=== PATIENT | male | born 1950 | race Caucasian/White ===

== ENCOUNTER 2017-10-22 08:11 | Inpatient (IN) | payer MEDICARE, OTHER ==
[~2017-10-22] VITALS: Ht 170.2 cm; Wt 75.6 kg
[~2017-10-22 08:11] MED LIST: ASPI-496 PO; ATOR10TA PO; BUPIVACAINE/PF 0.5% ONE; CHOL500050 PO; FLUO20TA25 PO; LEVO75TA5 PO; TRAZ50TA18 PO; VALS1TAB26 PO
[2017-10-22] MEDS ORDERED: LACTATED RINGERS 1,000 ML IV SCH ×2 (08:32→11:43)
[2017-10-22 08:46] VITALS: BP 126/82
[2017-10-22] MEDS ORDERED: FENTANYL PF 250 MCG/5ML ONE (11:06)
[2017-10-22] MEDS ORDERED: MIDAZOLAM 1 MG/ML, 2ML ONE (11:10)
[2017-10-22] MEDS ORDERED: CEFAZOLIN 1,000 MG ONE ×2 (11:13)
[2017-10-22] MEDS ORDERED: ROCURONIUM 10 MG/ML,10ML ONE (11:13)
[2017-10-22] MEDS ORDERED: PROPOFOL 10 MG/ML, 20ML ONE (11:13)
[2017-10-22] MEDS ORDERED: LIDOCAINE-MPF 2% ,5ML ONE (11:13)
[2017-10-22] MEDS ORDERED: EPINEPHRINE 1 MG/ML, 1ML INFIL ONE (11:15)
[2017-10-22] MEDS ORDERED: NEOSTIGMINE 1 MG/ML, 10ML ONE (11:31)
[2017-10-22] MEDS ORDERED: GLYCOPYRROLATE 0.2MG/1ML, 5ML ONE (11:31)
[2017-10-22] MEDS ORDERED: HYDROcodone/APAP 7.5-325MG/15ML UDC PO PRN (12:00)
[2017-10-22] MEDS ORDERED: LORazepam 2 MG/ML, 1ML IVPush PRN (12:00)
[2017-10-22] MEDS ORDERED: morphine SULFATE 10 MG/ML, 1ML IV PRN (12:00)
[2017-10-22] MEDS ORDERED: MEPERIDINE/PF 25MG/0.5ML IVPush PRN (12:00)
[2017-10-22] MEDS ORDERED: ENALAPRILAT 1.25 MG/ML, 2ML IVPush PRN (12:00)
[2017-10-22] MEDS ORDERED: DIPHENHYDRAMINE 50 MG/ML, 1ML IVPush PRN (12:00)
[2017-10-22] MEDS ORDERED: LORazepam 1MG TABLET PO PRN (12:00)
[2017-10-22] MEDS ORDERED: ONDANSETRON 2MG/ML, 2ML IVPush PRN ×2 (12:00)
[2017-10-22] MEDS ORDERED: hydrALAzine 20 MG/ML, 1ML IVPush PRN (12:00)
[2017-10-22] MEDS ORDERED: ACETAMINOPHEN 325 MG TABLET PO PRN ×2 (12:00)
[2017-10-22] MEDS ORDERED: ACETAMINOPHEN 650 MG SUPP PR PRN (12:00)
[2017-10-22] MEDS ORDERED: morphine SULFATE 10 MG/ML, 1ML IVPush PRN (12:00)
[2017-10-22] MEDS ORDERED: DIPHENHYDRAMINE 25 MG CAPSULE PO PRN (12:00)
[2017-10-22] MEDS ORDERED: OXYcodone 5 MG/5 ML ORAL.SOL UDC PO PRN (12:00)
[2017-10-22] MEDS ORDERED: morphine SULFATE 10 MG/ML, 1ML ONE (12:03)
[2017-10-22] MEDS ORDERED: FENTANYL PF 100 MCG/2ML ONE (12:03)
[2017-10-22] MEDS: FENTANYL PF 100 MCG/2ML IV PRN ×3 (12:05→12:45)
[2017-10-22] MEDS ORDERED: OXYcodone 5 MG/5 ML ORAL.SOL UDC ONE (12:23)
[2017-10-22] MEDS ORDERED: ACETAMINOPHEN 325 MG TABLET ONE (12:23)
[2017-10-22 14:44] VITALS: BP 145/75
[2017-10-22] MEDS: HYDROcodone/APAP 5/325 TABLET PO PRN (16:44)
[2017-10-22] MEDS: CEFAZOLIN PMX 2GM/50ML 50 ML IVPB SCH (18:26)
[2017-10-22 19:29] VITALS: BP 141/85
[2017-10-22] MEDS: FAMOTIDINE 20 MG/2 ML IVPush SCH (20:24)
[2017-10-22] MEDS ORDERED: ATORVASTATIN 10 MG TABLET PO SCH (21:00)
[2017-10-23] MEDS: HYDROcodone/APAP 5/325 TABLET PO PRN ×2 (00:29→12:59)
[2017-10-23 01:18] VITALS: BP 131/78
[2017-10-23] MEDS: CEFAZOLIN PMX 2GM/50ML 50 ML IVPB SCH ×2 (02:58→10:30)
[2017-10-23 05:38] LABS: BASOPHILS # (AUTO) 0.05 x10^3/uL (0-0.1); BASOPHILS % (AUTO) 0 % (0-1); EOSINOPHILS # (AUTO) 0.18 x10^3/uL (0-0.4); EOSINOPHILS % (AUTO) 2 % (1-7); LYMPHOCYTES # (AUTO) 1.84 x10^3/uL (1-3.4); LYMPHOCYTES % (AUTO) 16 % (22-44); MD NO; MEAN CORPUSCULAR HEMOGLOBIN 31.8 pg (27.5-34.5); MEAN CORPUSCULAR HGB CONC 34.2 g/dL (33.2-36.2); MEAN PLATELET VOLUME 8.5 fL (7.4-10.4); MONOCYTES # (AUTO) 0.86 x10^3/uL (0.2-0.8); MONOCYTES % (AUTO) 8 % (2-9); NEUTROPHILS % (AUTO) 75 % (42-75); PLATELET COUNT 217 x10^3/uL (130-400); RED BLOOD COUNT 4.41 x10^6/uL (4.38-5.82); RED CELL DISTRIBUTION WIDTH 15.9 % (9.4-14.8)
[2017-10-23 05:46] LABS: ANION GAP 10 mmol/L (5-15); CALCIUM 8.3 mg/dL (8.5-10.1); CHLORIDE 99 mmol/L (98-107); CREATININE 0.94 mg/dL (0.7-1.3)
[2017-10-23 06:41] VITALS: BP 132/76
[2017-10-23] MEDS ORDERED: ENOXAPARIN 40 MG/0.4 ML SQ SCH (09:00)
[2017-10-23] MEDS ORDERED: HYDROCHLOROTHIAZIDE PO SCH (09:00)
[2017-10-23] MEDS ORDERED: HYDROCHLOROTHIAZIDE 25 MG TABLET PO SCH (09:00)
[2017-10-23] MEDS ORDERED: LEVOTHYROXINE 75 MCG TABLET PO SCH (09:00)
[2017-10-23] MEDS ORDERED: FLUOXETINE HCL 20 MG CAPSULE PO SCH (09:00)
[2017-10-23] MEDS ORDERED: VALSARTAN PO SCH (09:00)
[2017-10-23] MEDS ORDERED: [UNRECOGNIZED DRUG - OTHER] PO SCH (09:00)
[2017-10-23] MEDS ORDERED: VALSARTAN 160 MG TABLET PO SCH (09:00)
[2017-10-23] MEDS: FAMOTIDINE 20 MG/2 ML IVPush SCH (09:03)
[2017-10-23 13:12] VITALS: BP 124/71
[2017-10-23] MEDS ORDERED: HYDR-3240 PO (13:47)
== END 2017-10-23 13:54 | disposition home or self-care (01) | DRG 165 ==
LOC: ORIP 08:11 → 4NOR 14:09 → DCLOUNGE 10-23 13:46
PROVIDERS: ADMIT Thoracic Surgery (Cardiothoracic Vascular Surgery); ATTEND Thoracic Surgery (Cardiothoracic Vascular Surgery)
PROC: 07B74ZX Excision of Thorax Lymphatic, Percutaneous Endoscopic Approach, Diagnostic (ICD-10-PCS; 2017-10-22)
PROC: 0BBC4ZZ Excision of Right Upper Lung Lobe, Percutaneous Endoscopic Approach (ICD-10-PCS; principal; 2017-10-22 11:00)
DX: D3A.090 Benign carcinoid tumor of the bronchus and lung (principal); R59.0 Localized enlarged lymph nodes
CPT/HCPCS: 36415; 71045; 80048; 85025; 86850; 86900; 86923; 88305; 88307; C1729; J0171; J0690; J1650; J2250; J2704; J2710; J3010; J3490; J2270; J7120; S0028